=== PATIENT | male | born 1965 | race Two or more races ===

== ENCOUNTER 2023-12-09 04:18 | Inpatient (IN) | payer MEDICAID ==
[~2023-12-09] VITALS: Ht 167.6 cm; Wt 68.9 kg
[2023-12-09 05:01] LABS: Basophils # (auto) 0.1 10 ^3/uL (0-0.2); Basophils % (auto) 0.4 % (0.0-2.0); Eosinophils # (auto) 0 10 ^3/uL (0-0.8); Eosinophils % (auto) 0.2 % (0.0-7.0); Hematocrit 39.3 % (41.0-53.0); Hemoglobin 13.1 g/dL (13.5-17.5); Lymphocytes # (auto) 2.4 10 ^3/uL (0.4-5.4); Lymphocytes % (auto) 9.8 % (10.0-50.0); Mean Corpuscular Hemoglobin 29.2 pg (28.0-32.0); Mean Corpuscular Hgb Conc. 33.5 g/dL (32.0-36.0); Mean Corpuscular Volume 87.3 fL (80.0-100.0); Monocytes # (auto) 0.8 10 ^3/uL (0-1.3); Monocytes % (auto) 3.4 % (0.0-12.0); Neutrophils # (auto) 21.1 10 ^3/uL (1.6-8.6); Neutrophils % (auto) 86.2 % (37.0-80.0); Platelet Count (auto) 320 10^3/uL (140-450); Red Blood Cells 4.49 10^6/uL (4.5-5.90); Red Cell Distribution Width 14.8 % (11.8-14.3); White Blood Cell 24.4 10^3/uL (4.4-10.8)
[2023-12-09 05:10] LABS: Chloride 107 mmol/L (98-107); Potassium 3.5 mmol/L (3.5-5.1); Sodium 136 mmol/L (136-145)
[2023-12-09 05:11] LABS: Anion Gap 9 (5-15); Carbon Dioxide 20 mmol/L (20-31)
[2023-12-09 05:12] LABS: Calcium 9.1 mg/dL (8.7-10.4)
[2023-12-09 05:16] LABS: Glucose 147 mg/dL (74-106)
[2023-12-09 05:17] LABS: BUN/Creatinine Ratio 26.6 (10.0-20.0); Blood Urea Nitrogen 29 mg/dL (9-23)
[2023-12-09] MEDS: SODIUM CHLORIDE 0.9% 1,000 ML IV ONE (06:47)
[2023-12-09] MEDS: ONDANSETRON HCL 4 MG/2 ML VIAL IV ONE (06:49)
[2023-12-09 07:30] VITALS: PULSE 80; RESP 22; O2SAT 99
[2023-12-09] MEDS: MORPHINE SULFATE INJ 2 MG/ml SYRG IV ONE (07:49)
[2023-12-09] MEDS ORDERED: MORPHINE SULFATE INJ 2 MG/ml SYRG IV ONE (12:00)
[2023-12-09] MEDS ORDERED: MORPHINE SULFATE INJ 2 MG/ml SYRG IV PRN (13:15)
[2023-12-09] MEDS ORDERED: ONDANSETRON HCL 4 MG/2 ML VIAL IV PRN (13:15)
[2023-12-09] MEDS: MORPHINE SULFATE 4 MG/ML SYR/VIAL ONE (13:18)
[2023-12-09] MEDS: MORPHINE SULFATE 4 MG/ML SYR/VIAL IV ONE (13:22)
[2023-12-09] MEDS: predniSONE 20 MG TAB PO SCH (13:30)
[2023-12-09] MEDS: cefTRIAXone 1GM/50ML D5W 50 ML IV SCH (14:32)
[2023-12-09] MEDS ORDERED: DEXTROSE (50%) 50ML SYRG IV PRN (14:45)
[2023-12-09] MEDS ORDERED: ATOR20TA50 PO (14:56)
[2023-12-09] MEDS ORDERED: LOS25T PO (14:56)
[2023-12-09 16:59] VITALS: BP 111/75; PULSE 126; RESP 18; TEMP 103; TEMP 98.3; O2SAT 95
[2023-12-09] MEDS: InsuLIN REG 1unit/0.01ml Soln (100units/ml) SC SCH (17:00)
[2023-12-09] MEDS: ACCU-CHEK COMFORT CURVE STRIP VI SCH (17:26)
[2023-12-09 20:00] VITALS: PULSE 107; RESP 19; O2SAT 97
[2023-12-09 21:00] VITALS: BP 117/69; PULSE 107; RESP 19; TEMP 100.9; O2SAT 94
[2023-12-10] VITALS (7 sets, daily range): BP systolic 97–118; BP diastolic 66–80; PULSE 71–99; RESP 16–18; TEMP 97.9–99.6; O2SAT 94–97
[2023-12-10 06:59] LABS: Basophils # (auto) 0 10 ^3/uL (0-0.2); Basophils % (auto) 0.1 % (0.0-2.0); Eosinophils # (auto) 0 10 ^3/uL (0-0.8); Hematocrit 38.8 % (41.0-53.0); Hemoglobin 13.1 g/dL (13.5-17.5); Lymphocytes # (auto) 2.3 10 ^3/uL (0.4-5.4); Lymphocytes % (auto) 11.1 % (10.0-50.0); Mean Corpuscular Hemoglobin 29.3 pg (28.0-32.0); Mean Corpuscular Hgb Conc. 33.7 g/dL (32.0-36.0); Mean Corpuscular Volume 86.9 fL (80.0-100.0); Monocytes # (auto) 0.9 10 ^3/uL (0-1.3); Monocytes % (auto) 4.5 % (0.0-12.0); Neutrophils # (auto) 17.4 10 ^3/uL (1.6-8.6); Neutrophils % (auto) 84.3 % (37.0-80.0); Nucleated Red Blood Cells % 0.1 %; Platelet Count (auto) 321 10^3/uL (140-450); Red Blood Cells 4.46 10^6/uL (4.5-5.90); Red Cell Distribution Width 14.8 % (11.8-14.3); White Blood Cell 20.7 10^3/uL (4.4-10.8)
[2023-12-10 07:10] LABS: Chloride 108 mmol/L (98-107); Potassium 4.2 mmol/L (3.5-5.1); Sodium 140 mmol/L (136-145)
[2023-12-10 07:11] LABS: Anion Gap 11 (5-15); Calcium 9.8 mg/dL (8.7-10.4); Carbon Dioxide 21 mmol/L (20-31)
[2023-12-10 07:16] LABS: BUN/Creatinine Ratio 19.3 (10.0-20.0); Blood Urea Nitrogen 21 mg/dL (9-23); Glucose 119 mg/dL (74-106)
[2023-12-10] MEDS: HYDROcodone-ACET 5/325MG TAB PO PRN (09:21)
[2023-12-10] MEDS ORDERED: predniSONE 20 MG TAB PO SCH (10:00)
[2023-12-10] MEDS: BUPIVACAINE 0.5% P/F INJ 10 ML VIAL ONE (10:10)
[2023-12-10] MEDS ORDERED: VANCOMYCIN PER PHARMACY 0 MG IV SCH (11:00)
[2023-12-10 11:33] LABS: LDL Cholesterol 128 mg/dL (< 100); Triglycerides 108 mg/dL (< 150)
[2023-12-10 11:35] LABS: Cholesterol 178 mg/dL (< 200); HDL Cholesterol 32 mg/dL (40-59)
[2023-12-10] MEDS ORDERED: MEPERIDINE HCL (25 MG/ML) 1ML VIAL ONE (12:20)
[2023-12-10] MEDS ORDERED: fentaNYL CITRATE 100 MCG/2 ML VL ONE (12:20)
[2023-12-10] MEDS ORDERED: MIDAZOLAM HCL 2MG/2ML 2ml VIAL (1mg/ml) ONE (12:20)
[2023-12-10] MEDS ORDERED: DexAMETHasone SOD PHOS 10MG/1ML VIAL INJ ONE (12:41)
[2023-12-10] MEDS ORDERED: PROPOFOL 10 MG/ML 20 ML IV ONE (12:41)
[2023-12-10] MEDS: VANCOMYCIN 1.5GM/300ML 300 ML IV ONE (14:00)
[2023-12-10] MEDS: ERGOCALCIFEROL 50,000 UNIT(1.25MG) CAP PO SCH (18:07)
[2023-12-10] MEDS: ATORVASTATIN 20 MG TAB PO SCH (21:29)
[2023-12-11] VITALS (8 sets, daily range): BP systolic 109–125; BP diastolic 65–80; PULSE 57–78; RESP 16–19; TEMP 97.6–98.3; O2SAT 97–99
[2023-12-11] MEDS: VANCOMYCIN 1GM/200ML PREMIX 200 ML IV SCH (04:19)
[2023-12-11 07:02] LABS: Basophils # (auto) 0 10 ^3/uL (0-0.2); Basophils % (auto) 0.1 % (0.0-2.0); Eosinophils # (auto) 0 10 ^3/uL (0-0.8); Hematocrit 36.1 % (41.0-53.0); Hemoglobin 11.7 g/dL (13.5-17.5); Lymphocytes # (auto) 1.3 10 ^3/uL (0.4-5.4); Lymphocytes % (auto) 6.4 % (10.0-50.0); Mean Corpuscular Hemoglobin 28.5 pg (28.0-32.0); Mean Corpuscular Hgb Conc. 32.5 g/dL (32.0-36.0); Mean Corpuscular Volume 87.7 fL (80.0-100.0); Monocytes # (auto) 0.6 10 ^3/uL (0-1.3); Monocytes % (auto) 2.8 % (0.0-12.0); Neutrophils # (auto) 18.4 10 ^3/uL (1.6-8.6); Neutrophils % (auto) 90.7 % (37.0-80.0); Platelet Count (auto) 338 10^3/uL (140-450); Red Blood Cells 4.11 10^6/uL (4.5-5.90); Red Cell Distribution Width 14.5 % (11.8-14.3); White Blood Cell 20.2 10^3/uL (4.4-10.8)
[2023-12-11 07:22] LABS: Chloride 104 mmol/L (98-107); Potassium 4.2 mmol/L (3.5-5.1)
[2023-12-11 07:23] LABS: Anion Gap 7 (5-15); Carbon Dioxide 23 mmol/L (20-31)
[2023-12-11 07:24] LABS: Calcium 9.5 mg/dL (8.7-10.4)
[2023-12-11 07:29] LABS: BUN/Creatinine Ratio 34.6 (10.0-20.0); Glucose 162 mg/dL (74-106)
[2023-12-11 07:30] LABS: Blood Urea Nitrogen 37 mg/dL (9-23); Sodium 134 mmol/L (136-145)
[2023-12-11] MEDS: ENOXAPARIN SOD 40 MG/0.4 ML SYRINGE SC SCH (09:37)
[2023-12-11 11:06] LABS: Urine Bacteria None Seen /hpf (None Seen)
[2023-12-11 11:25] LABS: Urine Blood Negative /uL (Negative); Urine Clarity Clear (Clear); Urine Color Light-Yellow (Yellow); Urine Protein, UAD Negative (Negative); Urine Specific Gravity 1.023 (1.001-1.035); Urine Urobilinogen Normal (Negative); Urine WBC 1 /hpf (0 - 3); Urine pH 5.5 (5.0-9.0)
[2023-12-11 11:28] LABS: Amphetamine Screen, Urine Neg (NEGATIVE); Barbiturate Scree,Urine Neg (NEGATIVE); Benzodiazephine Screen, Urine Pos (NEGATIVE); Cannabinoid Screen, Urine Neg (NEGATIVE); Cocaine Screen, Urine Neg (NEGATIVE); Opiate Scree,Urine Neg (NEGATIVE); Phencyclidine Screen, Urine Neg (NEGATIVE)
[2023-12-12] VITALS (7 sets, daily range): BP systolic 105–127; BP diastolic 56–74; PULSE 51–66; RESP 17–20; TEMP 97.8–99.2; O2SAT 96–99
[2023-12-12 08:00] LABS: Basophils # (auto) 0 10 ^3/uL (0-0.2); Basophils % (auto) 0.1 % (0.0-2.0); Eosinophils # (auto) 0 10 ^3/uL (0-0.8); Eosinophils % (auto) 0.2 % (0.0-7.0); Hematocrit 34.6 % (41.0-53.0); Hemoglobin 11.2 g/dL (13.5-17.5); Lymphocytes # (auto) 2.4 10 ^3/uL (0.4-5.4); Lymphocytes % (auto) 16.5 % (10.0-50.0); Mean Corpuscular Hemoglobin 28.3 pg (28.0-32.0); Mean Corpuscular Hgb Conc. 32.5 g/dL (32.0-36.0); Mean Corpuscular Volume 87.2 fL (80.0-100.0); Monocytes # (auto) 0.8 10 ^3/uL (0-1.3); Monocytes % (auto) 5.4 % (0.0-12.0); Neutrophils # (auto) 11.2 10 ^3/uL (1.6-8.6); Neutrophils % (auto) 77.8 % (37.0-80.0); Nucleated Red Blood Cells % 0.1 %; Platelet Count (auto) 311 10^3/uL (140-450); Red Blood Cells 3.96 10^6/uL (4.5-5.90); Red Cell Distribution Width 14.7 % (11.8-14.3); White Blood Cell 14.4 10^3/uL (4.4-10.8)
[2023-12-12 08:12] LABS: Chloride 108 mmol/L (98-107); Potassium 3.9 mmol/L (3.5-5.1); Sodium 138 mmol/L (136-145)
[2023-12-12 08:13] LABS: Anion Gap 6 (5-15); Calcium 9.2 mg/dL (8.7-10.4); Carbon Dioxide 24 mmol/L (20-31)
[2023-12-12 08:18] LABS: Blood Urea Nitrogen 35 mg/dL (9-23); Glucose 86 mg/dL (74-106)
[2023-12-12 08:19] LABS: Albumin 3.3 g/dL (3.2-4.8)
[2023-12-12 08:50] LABS: Phosphorus 3.8 mg/dL (2.4-5.1)
[2023-12-13] VITALS (8 sets, daily range): BP systolic 92–101; BP diastolic 54–73; PULSE 45–100; RESP 16–19; TEMP 98.1–100; O2SAT 91–98
[2023-12-13 08:39] LABS: Basophils # (auto) 0 10 ^3/uL (0-0.2); Basophils % (auto) 0.2 % (0.0-2.0); Eosinophils # (auto) 0 10 ^3/uL (0-0.8); Eosinophils % (auto) 0.2 % (0.0-7.0); Hematocrit 39.4 % (41.0-53.0); Hemoglobin 12.9 g/dL (13.5-17.5); Lymphocytes # (auto) 2.1 10 ^3/uL (0.4-5.4); Lymphocytes % (auto) 11.4 % (10.0-50.0); Mean Corpuscular Hemoglobin 28.4 pg (28.0-32.0); Mean Corpuscular Hgb Conc. 32.6 g/dL (32.0-36.0); Monocytes # (auto) 1.1 10 ^3/uL (0-1.3); Monocytes % (auto) 6.3 % (0.0-12.0); Neutrophils # (auto) 14.8 10 ^3/uL (1.6-8.6); Neutrophils % (auto) 81.9 % (37.0-80.0); Platelet Count (auto) 329 10^3/uL (140-450); Red Blood Cells 4.54 10^6/uL (4.5-5.90); Red Cell Distribution Width 14.6 % (11.8-14.3); White Blood Cell 18.1 10^3/uL (4.4-10.8)
[2023-12-13 08:53] LABS: Anion Gap 8 (5-15); Carbon Dioxide 24 mmol/L (20-31); Chloride 104 mmol/L (98-107); Potassium 3.9 mmol/L (3.5-5.1); Sodium 136 mmol/L (136-145)
[2023-12-13 08:55] LABS: Calcium 9.6 mg/dL (8.7-10.4)
[2023-12-13 08:59] LABS: Glucose 104 mg/dL (74-106)
[2023-12-13 09:05] LABS: Blood Urea Nitrogen 25 mg/dL (9-23)
[2023-12-13] MEDS: HYDROcodone-ACET 10/325MG TAB PO PRN (11:18)
[2023-12-13] MEDS ORDERED: fentaNYL CITRATE 100 MCG/2 ML VL ONE (11:57)
[2023-12-13] MEDS ORDERED: MEPERIDINE HCL (25 MG/ML) 1ML VIAL ONE (11:57)
[2023-12-13] MEDS ORDERED: DexAMETHasone SOD PHOS 10MG/1ML VIAL INJ ONE (11:58)
[2023-12-13] MEDS ORDERED: MIDAZOLAM HCL 2MG/2ML 2ml VIAL (1mg/ml) ONE (11:58)
[2023-12-13] MEDS: BUPIVACAINE HCL 50 ML ONE (12:23)
[2023-12-13] MEDS ORDERED: PROPOFOL 10 MG/ML 20 ML IV ONE (12:23)
[2023-12-13] MEDS: SODIUM CHLORIDE 0.9% 1,900 ML IV ONE (15:38)
[2023-12-13] MEDS ORDERED: PHENYLEPHRINE HCL 10 MG/ML VL IV ONE (17:59)
[2023-12-13] MEDS: ACETAMINOPHEN 500 MG TAB PO PRN (18:37)
[2023-12-13] MEDS: SODIUM CHLORIDE 0.9% 1,000 ML IV SCH (18:45)
[2023-12-14] VITALS (9 sets, daily range): BP systolic 94–111; BP diastolic 64–75; PULSE 83–134; RESP 16–24; TEMP 98.6–102.6; O2SAT 96–100
[2023-12-14 07:12] LABS: Carbon Dioxide 20 mmol/L (20-31)
[2023-12-14 07:13] LABS: Chloride 101 mmol/L (98-107); Potassium 3.6 mmol/L (3.5-5.1)
[2023-12-14 07:18] LABS: BUN/Creatinine Ratio 14.2 (10.0-20.0); Blood Urea Nitrogen 15 mg/dL (9-23); Glucose 166 mg/dL (74-106)
[2023-12-14 07:29] LABS: Hematocrit 37.8 % (41.0-53.0); Hemoglobin 12.3 g/dL (13.5-17.5); Mean Corpuscular Hemoglobin 28.2 pg (28.0-32.0); Mean Corpuscular Hgb Conc. 32.6 g/dL (32.0-36.0); Mean Corpuscular Volume 86.4 fL (80.0-100.0); Platelet Count (auto) 309 10^3/uL (140-450); Red Blood Cells 4.37 10^6/uL (4.5-5.90); Red Cell Distribution Width 14.9 % (11.8-14.3)
[2023-12-14 07:32] LABS: White Blood Cell 30.3 10^3/uL (4.4-10.8)
[2023-12-14 07:33] LABS: Band Neutrophils % (manual) 0; Basophils % (manual) 0 (0.0-2.0); Blast Cells 0; Eosinophils % (manual) 0 (0-7); Metamyelocytes % 0; Myelocytes % 0; Promyelocytes % 0; Reactive Lymphocytes 0
[2023-12-14 08:24] LABS: Lymphocytes % (manual) 8 (10.0-50.0); Monocytes % (manual) 5 (0-12); Platelet Estimate Adequate
[2023-12-14] MEDS: SODIUM CHLORIDE 0.9% 1,000 ML IV SCH ×2 (08:30→16:56)
[2023-12-14 08:56] LABS: Anion Gap 11 (5-15); Sodium 132 mmol/L (136-145)
[2023-12-14] MEDS: SODIUM CHLORIDE 0.9% 500 ML IV ONE ×3 (11:15→16:56)
[2023-12-14] MEDS: PIPERACILLIN-TAZOB 3.375GM 100 ML IV ONE (12:15)
[2023-12-14] MEDS ORDERED: PIPERACILLIN-TAZOB 3.375GM 100 ML IV SCH (14:00)
[2023-12-14] MEDS: PIPERACILLIN-TAZOB 3.375GM 100 ML IV SCH (19:31)
[2023-12-15] VITALS (9 sets, daily range): BP systolic 103–114; BP diastolic 66–73; PULSE 82–111; RESP 17–20; TEMP 98.1–100.4; O2SAT 97–99
[2023-12-15 11:02] LABS: Basophils # (auto) 0 10 ^3/uL (0-0.2); Basophils % (auto) 0.2 % (0.0-2.0); Eosinophils # (auto) 0.1 10 ^3/uL (0-0.8); Eosinophils % (auto) 0.3 % (0.0-7.0); Hematocrit 31.3 % (41.0-53.0); Hemoglobin 10.5 g/dL (13.5-17.5); Lymphocytes # (auto) 1.2 10 ^3/uL (0.4-5.4); Lymphocytes % (auto) 5.5 % (10.0-50.0); Mean Corpuscular Hemoglobin 29.1 pg (28.0-32.0); Mean Corpuscular Hgb Conc. 33.4 g/dL (32.0-36.0); Mean Corpuscular Volume 87.2 fL (80.0-100.0); Monocytes # (auto) 0.8 10 ^3/uL (0-1.3); Monocytes % (auto) 3.6 % (0.0-12.0); Neutrophils # (auto) 19.1 10 ^3/uL (1.6-8.6); Neutrophils % (auto) 90.4 % (37.0-80.0); Platelet Count (auto) 271 10^3/uL (140-450); Red Blood Cells 3.59 10^6/uL (4.5-5.90); Red Cell Distribution Width 14.8 % (11.8-14.3); White Blood Cell 21.1 10^3/uL (4.4-10.8)
[2023-12-15 11:14] LABS: Chloride 105 mmol/L (98-107); Potassium 3.6 mmol/L (3.5-5.1); Sodium 134 mmol/L (136-145)
[2023-12-15 11:15] LABS: Anion Gap 8 (5-15); Carbon Dioxide 21 mmol/L (20-31)
[2023-12-15 11:16] LABS: Calcium 8.7 mg/dL (8.7-10.4)
[2023-12-15 11:21] LABS: BUN/Creatinine Ratio 14.7 (10.0-20.0); Blood Urea Nitrogen 15 mg/dL (9-23); Glucose 128 mg/dL (74-106)
[2023-12-15] MEDS: COLCHICINE 0.6 MG CAP PO SCH (14:39)
[2023-12-16] VITALS (8 sets, daily range): BP systolic 90–111; BP diastolic 58–74; PULSE 62–91; RESP 17–20; TEMP 97.7–101.5; O2SAT 96–100
[2023-12-16 05:49] LABS: Chloride 107 mmol/L (98-107); Potassium 3.7 mmol/L (3.5-5.1); Sodium 135 mmol/L (136-145)
[2023-12-16 05:50] LABS: Anion Gap 7 (5-15); Calcium 8.5 mg/dL (8.7-10.4); Carbon Dioxide 21 mmol/L (20-31)
[2023-12-16 05:54] LABS: Basophils # (auto) 0.1 10 ^3/uL (0-0.2); Basophils % (auto) 0.3 % (0.0-2.0); Eosinophils # (auto) 0.1 10 ^3/uL (0-0.8); Eosinophils % (auto) 0.9 % (0.0-7.0); Hematocrit 28.6 % (41.0-53.0); Hemoglobin 9.5 g/dL (13.5-17.5); Lymphocytes # (auto) 1.1 10 ^3/uL (0.4-5.4); Lymphocytes % (auto) 6.8 % (10.0-50.0); Mean Corpuscular Hemoglobin 28.6 pg (28.0-32.0); Mean Corpuscular Hgb Conc. 33.1 g/dL (32.0-36.0); Mean Corpuscular Volume 86.5 fL (80.0-100.0); Monocytes # (auto) 0.6 10 ^3/uL (0-1.3); Monocytes % (auto) 4.1 % (0.0-12.0); Neutrophils % (auto) 87.9 % (37.0-80.0); Platelet Count (auto) 288 10^3/uL (140-450); Red Blood Cells 3.31 10^6/uL (4.5-5.90); Red Cell Distribution Width 14.9 % (11.8-14.3); White Blood Cell 15.9 10^3/uL (4.4-10.8)
[2023-12-16 05:55] LABS: BUN/Creatinine Ratio 12.1 (10.0-20.0); Blood Urea Nitrogen 11 mg/dL (9-23); Glucose 101 mg/dL (74-106)
[2023-12-16 06:05] LABS: CRP High Sensitivity > 20.00 mg/dL (<1.0)
[2023-12-16 06:31] LABS: Erythrocyte Sedimentation Rate 104 mm/hr (0-20)
[2023-12-16] MEDS: INDOMETHACIN 25 MG CAP PO ONE ×2 (15:59→22:09)
[2023-12-16 19:14] LABS: Basophils # (auto) 0 10 ^3/uL (0-0.2); Basophils % (auto) 0.2 % (0.0-2.0); Eosinophils # (auto) 0.1 10 ^3/uL (0-0.8); Eosinophils % (auto) 1.1 % (0.0-7.0); Hematocrit 30.1 % (41.0-53.0); Hemoglobin 9.7 g/dL (13.5-17.5); Lymphocytes % (auto) 8.5 % (10.0-50.0); Mean Corpuscular Hemoglobin 28.1 pg (28.0-32.0); Mean Corpuscular Hgb Conc. 32.4 g/dL (32.0-36.0); Mean Corpuscular Volume 86.8 fL (80.0-100.0); Monocytes # (auto) 0.6 10 ^3/uL (0-1.3); Monocytes % (auto) 5.6 % (0.0-12.0); Neutrophils # (auto) 9.7 10 ^3/uL (1.6-8.6); Neutrophils % (auto) 84.6 % (37.0-80.0); Platelet Count (auto) 292 10^3/uL (140-450); Red Blood Cells 3.46 10^6/uL (4.5-5.90); Red Cell Distribution Width 14.7 % (11.8-14.3); White Blood Cell 11.5 10^3/uL (4.4-10.8)
[2023-12-16 19:24] LABS: Chloride 107 mmol/L (98-107); Potassium 3.8 mmol/L (3.5-5.1); Sodium 138 mmol/L (136-145)
[2023-12-16 19:25] LABS: Anion Gap 8 (5-15); Calcium 8.5 mg/dL (8.7-10.4); Carbon Dioxide 23 mmol/L (20-31)
[2023-12-16 19:30] LABS: BUN/Creatinine Ratio 10.9 (10.0-20.0); Blood Urea Nitrogen 12 mg/dL (9-23); Glucose 127 mg/dL (74-106)
[2023-12-17] VITALS (7 sets, daily range): BP systolic 100–112; BP diastolic 65–79; PULSE 57–73; RESP 18; TEMP 36.8; O2SAT 95–100
[2023-12-17 08:36] LABS: Basophils # (auto) 0 10 ^3/uL (0-0.2); Basophils % (auto) 0.3 % (0.0-2.0); Eosinophils # (auto) 0.3 10 ^3/uL (0-0.8); Eosinophils % (auto) 3.6 % (0.0-7.0); Hematocrit 29.8 % (41.0-53.0); Lymphocytes # (auto) 0.9 10 ^3/uL (0.4-5.4); Lymphocytes % (auto) 11.6 % (10.0-50.0); Mean Corpuscular Hemoglobin 29.3 pg (28.0-32.0); Mean Corpuscular Hgb Conc. 33.6 g/dL (32.0-36.0); Mean Corpuscular Volume 87.3 fL (80.0-100.0); Monocytes # (auto) 0.4 10 ^3/uL (0-1.3); Monocytes % (auto) 5.4 % (0.0-12.0); Neutrophils # (auto) 5.8 10 ^3/uL (1.6-8.6); Neutrophils % (auto) 79.1 % (37.0-80.0); Platelet Count (auto) 304 10^3/uL (140-450); Red Blood Cells 3.42 10^6/uL (4.5-5.90); Red Cell Distribution Width 14.7 % (11.8-14.3); White Blood Cell 7.3 10^3/uL (4.4-10.8)
[2023-12-17 08:46] LABS: Chloride 106 mmol/L (98-107); Potassium 3.6 mmol/L (3.5-5.1); Sodium 138 mmol/L (136-145)
[2023-12-17 08:47] LABS: Anion Gap 7 (5-15); Carbon Dioxide 25 mmol/L (20-31)
[2023-12-17 08:52] LABS: BUN/Creatinine Ratio 14.3 (10.0-20.0); Blood Urea Nitrogen 15 mg/dL (9-23); Glucose 88 mg/dL (74-106)
[2023-12-17] MEDS ORDERED: VANCOMYCIN 1GM/250ML 250 ML IV SCH (10:45)
[2023-12-17] MEDS ORDERED: AUG875T PO (12:31)
[2023-12-17] MEDS: VANCOMYCIN 1GM/250ML 250 ML IV SCH (14:00)
[2023-12-17] MEDS ORDERED: PHENYLEPHRINE HCL 10 MG/ML VL IV ONE (17:59)
[2023-12-17] MEDS ORDERED: DOXY100C79 PO (21:14)
== END 2023-12-17 18:00 | disposition home health service (06) | DRG 720 ==
LOC: ER 04:18 → OVERFLOW 13:22 → WEST WING 16:16 → TELE-WESTW 12-12 19:08
PROVIDERS: ADMIT Internal Medicine; ATTEND Internal Medicine
PROC: 0Y9N0ZZ Drainage of Left Foot, Open Approach (ICD-10-PCS; principal; 2023-12-10 12:13)
PROC: 0Y9N0ZZ Drainage of Left Foot, Open Approach (ICD-10-PCS; 2023-12-13)
DX: A41.9 Sepsis, unspecified organism (principal); I42.1 Obstructive hypertrophic cardiomyopathy; L03.116 Cellulitis of left lower limb; L02.612 Cutaneous abscess of left foot; E78.5 Hyperlipidemia, unspecified; M10.072 Idiopathic gout, left ankle and foot; I10 Essential (primary) hypertension; R73.9 Hyperglycemia, unspecified; E55.9 Vitamin D deficiency, unspecified; R73.03 Prediabetes; Z79.899 Other long term (current) drug therapy
CPT/HCPCS: 36415; 71046; 73562; 73630; 73700; 80048; 80061; 80202; 80307; 81001; 82040; 82306; 82607; 82962; 83036; 83605; 84100; 84443; 84550; 85007; 85025; 85027; 85652; 86141; 87040; 87070; 87075; 87205; 93005; 93306; 93971; 96365; 96375; 99291; G0378; J1100; J1815; J2250; J2405; J2543; J2704; J3490